=== PATIENT | female | born 1935 | race Caucasian/White ===

== ENCOUNTER → 2016-05-26 | Day surgery (SDC) | payer MEDICARE, BC ==
[~2016-05-26] MED LIST: BUPIVACAINE/EPINEPHRINE 0.5% PF 30 ML VIAL ONE; IOHEXOL 180 MG/ML 20 ML VIAL (for RAD DIAG) ONE; KETOROLAC TROMETHAMINE 30 MG/ML (IVP) VIAL IV PUSH ONE; LACTATED RINGER'S 1000 ML INJ 1,000 ML ONE; LIDOCAINE 1%/EPINEPHrine 1:100,000 SOLN 20 ML VIAL ONE; MIDAZOLAM HCL 2 MG/2 ML VIAL ONE; ONDANSETRON HCL 4 MG/2 ML VIAL IV PUSH ONE; PROPOFOL 500 MG/50 ML BTL IV ONE; ceFAZolin 2 GM PREMIX 50 ML ONE
--- NOTE | 2016-05-26 17:30 | TN ---
cc: SERVANDO MCCAIN DATE OF SURGERY: 05/26/2016 PREOPERATIVE DIAGNOSIS Compression fracture of T7-T8, acute to subacute. POSTOPERATIVE DIAGNOSIS Compression fracture of T7-T8, acute to subacute. PROCEDURE Kyphoplasty of T7-T8 and placement of bone cement spacers. SURGEON Servando Mccain MD ANESTHESIA TIVA. BLOOD LOSS Minimal. INDICATION This patient is a 80-year-old female who states that she began developing back and rib pain in February after coughing spell. Investigative studies shows evidence of fractures at T7-T8 which were noted to be acute based on MRI scan from April 2016. She was referred for orthopedic evaluation. She has had only minimal improvement with a brace. [facility] and was felt to be a candidate for surgical treatment. PROCEDURE The patient brought to the operating room, given limited sedation rolled to prone position. AP and lateral radiographic images used identifying T7-T8 levels. A time-out was done. The back was scrubbed alcohol followed by Hibiclens followed Chloraprep and draped sterilely. Antibiotics given within a one hour time window. A single balloon approach utilizing left side at T7. A single balloon for the right side of T8 using the Kyphon system. A sequence of local anesthesia followed by a small incision and An awl placed through the bone and into the vertebral body at oblique angle. A 15 mm Kyphon balloon was placed at each level and inflated. Some chronicity was noted at both levels. Correction of the deformity was not possible. On the back table methacrylate was mixed and after approximately 11 minutes was injected into both levels. There was minimal extravasation from the lower level. The cement was allowed to harden. The tubes removed. Intraoperative x-rays were obtained. The wound was anesthetized, irrigated, closed with 4-0 Vicryl followed by Dermabond. The patient was awakened and taken to recovery in satisfactory condition. Servando Mccain MD [facility] [place]/ /4:35 PM /5:21 PM
== END | disposition home or self-care (01) ==
LOC: ESDC 13:28
PROVIDERS: ATTEND Orthopaedic Surgery Orthopaedic Surgery of the Spine
DX: S22.060A Wedge compression fracture of T7-T8 vertebra, initial encounter for closed fracture (principal)
CPT/HCPCS: 01936; 22513; 22515; 72070; J0690; J1885; J2250; J2405; J3010; J7120; Q9965